=== PATIENT | female | born 1970 | race African-American/Black ===

== ENCOUNTER → 2016-09-03 | Outpatient (CLI) | payer OTHER ==
[~2016-09-03] MED LIST: ALBUTEROL0.63 MG/3 IH; ATIVAN0.5 MG PO; COMBIVENT INH14.7 GM IH; COMBIVENT RESPI1 SPR INH; HYOSCYAMINE0.15 MG PO; LOTRIMIN AF1% TOP; NEB; NEURONTIN300 MG PO; NEXIUM 40MG40 MG PO; NORCO 325 MG-51 TAB PO; REFRESH TEARS 115 ML OP; REMERON30 MG PO; ULTRAM 50MG TAB50 MG PO; VENTOLIN0.09 MG IH; VOLTAREN1% TP
== END ==
LOC: MAMMO 13:04
DX: Z12.31 Encounter for screening mammogram for malignant neoplasm of breast (principal); Z01.419 Encounter for gynecological examination (general) (routine) without abnormal findings
CPT/HCPCS: G0202

== ENCOUNTER 2017-06-04 13:30 | Outpatient (RCR) | payer OTHER ==
[2015-08-10 18:11] VITALS: BP 99/62
== END 2017-07-20 | disposition home or self-care (01) ==
LOC: PT
DX: M25.562 Pain in left knee (principal); M25.561 Pain in right knee

== ENCOUNTER → 2017-10-14 | Outpatient (CLI) | payer OTHER ==
[2015-08-10 18:11] VITALS: BP 99/62
== END ==
LOC: MAMMO 08:25
DX: Z12.31 Encounter for screening mammogram for malignant neoplasm of breast (principal)

== ENCOUNTER → 2018-12-08 | Outpatient (CLI) | payer OTHER ==
[2015-08-10 18:11] VITALS: BP 99/62
== END ==
LOC: MAMMO 10:45
DX: Z12.31 Encounter for screening mammogram for malignant neoplasm of breast (principal)

== ENCOUNTER → 2018-12-25 | Outpatient (CLI) | payer OTHER ==
[2015-08-10 18:11] VITALS: BP 99/62
[2018-12-25 14:27] LABS: HEMATOCRIT 36.1 % (37.0-47.0); HEMOGLOBIN 11.5 g/dL (12.5-16.0); MEAN CELL VOLUME 85 fl (78-100); MEAN CORPUSCULAR HEMOGLOBIN 27 pg (27-31); MEAN CORPUSCULAR HGB CONC 32 g/dL (33-37); PLATELET COUNT 264 K/mm3 (130-400); RED BLOOD COUNT 4.27 M/mm3 (4.10-5.30); RED CELL DISTRIBUTION WIDTH 15.3 % (11.5-14.5); WHITE BLOOD COUNT 3.4 K/mm3 (4.8-10.8)
[2018-12-25 14:32] LABS: ALBUMIN 3.7 g/dL (3.5-5.0)
[2018-12-25 14:34] LABS: CALCIUM 9.4 mg/dL (8.3-10.5)
[2018-12-25 14:35] LABS: TOTAL PROTEIN 7.7 g/dL (6.4-8.3)
[2018-12-25 14:37] LABS: TOTAL BILIRUBIN 0.3 mg/dL (0.2-1.2)
[2018-12-25 15:17] LABS: LYMPHOCYTE 47 % (20-51); MONOCYTE 14 % (3-10); NEUTROPHILS 33 % (42-75)
== END ==
LOC: LAB 14:05
PROVIDERS: Nurse Practitioner
DX: R42 Dizziness and giddiness (principal); R53.1 Weakness

== ENCOUNTER 2019-04-29 20:32 | Emergency (ER) | payer OTHER ==
[2019-04-29] MEDS ORDERED: D-1000 185 MG-11 TAB PO (21:09)
[2019-04-29] MEDS ORDERED: OMEGA 3 FISH O1 EACH PO (21:09)
[2019-04-29 21:44] VITALS: BP 118/74
== END 2019-04-29 21:45 | disposition home or self-care (01) ==
LOC: ED 20:32
DX: M25.561 Pain in right knee (principal); F41.9 Anxiety disorder, unspecified; Z98.890 Other specified postprocedural states; X58.XXXA Exposure to other specified factors, initial encounter; Y92.830 Public park as the place of occurrence of the external cause

== ENCOUNTER → 2019-05-05 | Outpatient (CLI) | payer OTHER ==
[2019-04-29 21:44] VITALS: BP 118/74
[~2019-05-05] MED LIST changes: +D-1000 185 MG-11 TAB PO; +OMEGA 3 FISH O1 EACH PO
== END ==
LOC: RAD 12:31
DX: R60.0 Localized edema (principal); S89.91XA Unspecified injury of right lower leg, initial encounter

== ENCOUNTER → 2019-05-10 | Outpatient (CLI) | payer OTHER ==
[2019-04-29 21:44] VITALS: BP 118/74
[2019-05-10 10:29] LABS: EOS # 0.2 (0.04-0.40); EOS % 4.6 % (1.0-5.0); HEMATOCRIT 36.2 % (37.0-47.0); HEMOGLOBIN 11.8 g/dL (12.5-16.0); LYMPH# 1.8 (1.50-4.00); MEAN CELL VOLUME 84 fl (78-100); MEAN CORPUSCULAR HEMOGLOBIN 28 pg (27-31); MEAN CORPUSCULAR HGB CONC 33 g/dL (33-37); MEAN PLATELET VOLUME 9.5 fl (7.4-10.4); MONO # 0.3 (0.20-0.80); NEU # 1.2 (1.40-6.50); PLATELET COUNT 250 K/mm3 (130-400); RED BLOOD COUNT 4.29 M/mm3 (4.10-5.30); WHITE BLOOD COUNT 3.5 K/mm3 (4.8-10.8)
[2019-05-10 11:12] LABS: TOTAL BILIRUBIN 0.4 mg/dL (0.2-1.2)
[2019-05-10 11:13] LABS: ALBUMIN 3.9 g/dL (3.5-5.0); CALCIUM 9.3 mg/dL (8.3-10.5); POTASSIUM 3.8 mmol/L (3.5-5.1); TOTAL PROTEIN 7.6 g/dL (6.4-8.3)
[2019-05-10 21:42] LABS: FOLLICLE STIMULATING HORMONE 36.1 mIU/mL (()); LUTENIZING HORMONE 17.3 mIU/mL (())
== END ==
LOC: LAB 10:10
PROVIDERS: Physician Assistant
DX: Z00.00 Encounter for general adult medical examination without abnormal findings (principal); Z13.220 Encounter for screening for lipoid disorders; Z13.1 Encounter for screening for diabetes mellitus; J45.909 Unspecified asthma, uncomplicated; R41.3 Other amnesia; R23.4 Changes in skin texture; R42 Dizziness and giddiness; Z87.42 Personal history of other diseases of the female genital tract

== ENCOUNTER 2019-06-16 14:00 | Outpatient (RCR) | payer OTHER | END 2019-06-16 14:30 | disposition still patient (30) | LOC: SPEECH 14:00 | DX: Z00.00 Encounter for general adult medical examination without abnormal findings (principal); R41.3 Other amnesia; R42 Dizziness and giddiness ==

== ENCOUNTER 2019-07-19 13:30 | Outpatient (RCR) | payer OTHER | END 2019-07-19 14:00 | disposition still patient (30) | LOC: PT 13:30 | DX: M25.561 Pain in right knee (principal) ==

== ENCOUNTER → 2020-08-15 | Outpatient (CLI) | payer OTHER ==
[2020-08-15 16:08] LABS: URINE APPEARANCE CLEAR; URINE BILIRUBIN NEGATIVE (NEGATIVE); URINE BLOOD TRACE (NEGATIVE); URINE COLOR YELLOW; URINE GLUCOSE NEGATIVE (NEGATIVE); URINE KETONE NEGATIVE (NEGATIVE); URINE LEUKOCYTE ESTERASE NEGATIVE (NEGATIVE); URINE NITRATE NEGATIVE (NEGATIVE); URINE PROTEIN(semi-quant) TRACE mg/dL (NEGATIVE); URINE UROBILINOGEN NORMAL (NORMAL); URINE WBC 0-1 /hpf (0-3)
== END ==
LOC: LAB 16:00
PROVIDERS: Physician Assistant
DX: Z00.5 Encounter for examination of potential donor of organ and tissue (principal)

== ENCOUNTER → 2020-08-16 | Outpatient (CLI) | payer OTHER | LOC: LAB 12:07 | DX: Z00.5 Encounter for examination of potential donor of organ and tissue (principal) ==

== ENCOUNTER → 2020-10-03 | Outpatient (CLI) | payer OTHER ==
[2020-10-03 12:45] LABS: URINE APPEARANCE CLEAR; URINE BILIRUBIN NEGATIVE (NEGATIVE); URINE BLOOD NEGATIVE (NEGATIVE); URINE COLOR YELLOW; URINE GLUCOSE NEGATIVE (NEGATIVE); URINE KETONE NEGATIVE (NEGATIVE); URINE LEUKOCYTE ESTERASE NEGATIVE (NEGATIVE); URINE NITRATE NEGATIVE (NEGATIVE); URINE PROTEIN(semi-quant) NEGATIVE (NEGATIVE); URINE UROBILINOGEN NORMAL (NORMAL)
== END ==
LOC: LAB 12:21
PROVIDERS: Physician Assistant
DX: Z00.5 Encounter for examination of potential donor of organ and tissue (principal)

== ENCOUNTER → 2020-10-09 | Outpatient (CLI) | payer OTHER | LOC: MAMMO 10:36 | DX: Z12.31 Encounter for screening mammogram for malignant neoplasm of breast (principal); Z00.5 Encounter for examination of potential donor of organ and tissue ==

== ENCOUNTER → 2020-11-02 | Outpatient (CLI) | payer OTHER | LOC: RAD 08:09 | DX: N18.2 Chronic kidney disease, stage 2 (mild) (principal) ==

== ENCOUNTER → 2020-12-10 | Outpatient (CLI) | payer OTHER ==
[2020-12-10 11:21] LABS: URINE WBC 0 /hpf (0-3)
[2020-12-10 13:36] LABS: URINE COLOR YELLOW
[2020-12-10 13:37] LABS: URINE APPEARANCE CLEAR; URINE BILIRUBIN NEGATIVE (NEGATIVE); URINE BLOOD NEGATIVE (NEGATIVE); URINE GLUCOSE NEGATIVE (NEGATIVE); URINE KETONE NEGATIVE (NEGATIVE); URINE LEUKOCYTE ESTERASE NEGATIVE (NEGATIVE); URINE NITRATE NEGATIVE (NEGATIVE); URINE PROTEIN(semi-quant) TRACE mg/dL (NEGATIVE); URINE UROBILINOGEN NORMAL (NORMAL)
[2020-12-10 23:54] LABS: CREATININE OTHER SOURCE 14 mg/dL (())
== END ==
LOC: LAB 10:55
PROVIDERS: Internal Medicine Nephrology
DX: N18.2 Chronic kidney disease, stage 2 (mild) (principal)

== ENCOUNTER 2021-09-07 07:31 | Emergency (ER) | payer OTHER ==
[2021-09-07 07:42] VITALS: BP 128/75
[2021-09-07 08:44] LABS: URINE APPEARANCE CLOUDY; URINE BILIRUBIN NEGATIVE (NEGATIVE); URINE BLOOD 250 ery/uL (NEGATIVE); URINE COLOR RED; URINE GLUCOSE NEGATIVE (NEGATIVE); URINE KETONE NEGATIVE (NEGATIVE); URINE LEUKOCYTE ESTERASE 2+ (NEGATIVE); URINE NITRATE POSITIVE (NEGATIVE); URINE PROTEIN(semi-quant) 2+ (NEGATIVE); URINE UROBILINOGEN NORMAL (NORMAL); URINE WBC >50 /hpf (0-3)
[2021-09-07] MEDS ORDERED: SEPTRA DS 8001 TAB PO (09:08)
== END 2021-09-07 09:20 | disposition home or self-care (01) ==
LOC: ED 07:31
PROVIDERS: Family Medicine
DX: N30.91 Cystitis, unspecified with hematuria (principal); F17.210 Nicotine dependence, cigarettes, uncomplicated

== ENCOUNTER → 2021-09-10 | Outpatient (CLI) | payer OTHER ==
[~2021-09-10] MED LIST changes: +SEPTRA DS 8001 TAB PO
== END ==
LOC: MAMMO 13:46
DX: Z12.31 Encounter for screening mammogram for malignant neoplasm of breast (principal)

== ENCOUNTER → 2021-09-18 | Outpatient (CLI) | payer OTHER ==
[2021-09-18 17:39] LABS: URINE APPEARANCE CLEAR; URINE BILIRUBIN NEGATIVE (NEGATIVE); URINE BLOOD 250 ery/uL (NEGATIVE); URINE COLOR YELLOW; URINE GLUCOSE NEGATIVE (NEGATIVE); URINE KETONE NEGATIVE (NEGATIVE); URINE LEUKOCYTE ESTERASE NEGATIVE (NEGATIVE); URINE NITRATE NEGATIVE (NEGATIVE); URINE PROTEIN(semi-quant) 1+ (NEGATIVE); URINE UROBILINOGEN NORMAL (NORMAL)
[2021-09-18 17:40] LABS: URINE MUCUS PRESENT (NOT PRESENT); URINE WBC 0-1 /hpf (0-3)
== END ==
LOC: LAB 16:59
PROVIDERS: Nurse Practitioner Family
DX: R10.30 Lower abdominal pain, unspecified (principal); T50.905A Adverse effect of unspecified drugs, medicaments and biological substances, initial encounter

== ENCOUNTER → 2022-06-12 | Outpatient (CLI) | payer OTHER ==
[2022-06-12 09:44] LABS: BASO # 0.01 K/mm3 (0.02-0.10); EOS # 0.06 K/mm3 (0.04-0.40); EOS % 1.9 % (1.0-5.0); HEMATOCRIT 39.3 % (37.0-47.0); HEMOGLOBIN 12.9 g/dL (12.5-16.0); LYMPH# 1.64 K/mm3 (1.50-4.00); MEAN CELL VOLUME 86 fl (78-100); MEAN CORPUSCULAR HEMOGLOBIN 28 pg (27-31); MEAN CORPUSCULAR HGB CONC 33 g/dL (33-37); MEAN PLATELET VOLUME 8.9 fl (7.4-10.4); MONO # 0.22 K/mm3 (0.20-0.80); NEU # 1.22 K/mm3 (1.40-6.50); PLATELET COUNT 257 K/mm3 (130-400); RED BLOOD COUNT 4.55 M/mm3 (4.10-5.30); RED CELL DISTRIBUTION WIDTH 14.2 % (11.5-14.5); WHITE BLOOD COUNT 3.2 K/mm3 (4.8-10.8)
[2022-06-12 09:52] LABS: POTASSIUM 3.9 mmol/L (3.5-5.1)
[2022-06-12 09:54] LABS: CALCIUM 10.1 mg/dL (8.3-10.5)
[2022-06-12 09:55] LABS: TOTAL PROTEIN 7.5 g/dL (6.4-8.3)
[2022-06-12 09:57] LABS: TOTAL BILIRUBIN 0.5 mg/dL (0.2-1.2)
[2022-06-13 22:21] LABS: FOLLICLE STIMULATING HORMONE 108.6 mIU/mL (()); LUTENIZING HORMONE 27.4 mIU/mL (())
== END ==
LOC: LAB 09:22
PROVIDERS: Physician Assistant
DX: Z00.00 Encounter for general adult medical examination without abnormal findings (principal); Z23 Encounter for immunization; Z13.29 Encounter for screening for other suspected endocrine disorder; F41.9 Anxiety disorder, unspecified; J45.909 Unspecified asthma, uncomplicated; K58.9 Irritable bowel syndrome, unspecified; E78.5 Hyperlipidemia, unspecified; E89.41 Symptomatic postprocedural ovarian failure; K90.9 Intestinal malabsorption, unspecified; M25.561 Pain in right knee; M25.562 Pain in left knee; M79.671 Pain in right foot; M19.072 Primary osteoarthritis, left ankle and foot; W19.XXXA Unspecified fall, initial encounter; Z83.3 Family history of diabetes mellitus

== ENCOUNTER → 2023-10-27 | Outpatient (CLI) | payer OTHER | LOC: MAMMO 10:00 | DX: Z12.31 Encounter for screening mammogram for malignant neoplasm of breast (principal); N64.89 Other specified disorders of breast ==